=== PATIENT | male | born 1990 | race Caucasian/White ===

== ENCOUNTER 2018-10-11 15:54 | Emergency (ER) | payer MEDICAID ==
[~2018-10-11] VITALS: Ht 182.9 cm; Wt 59.9 kg
[2018-10-11 16:03] VITALS: Ht 182.9 cm; Wt 59.9 kg
[2018-10-11 16:34] VITALS: BP 105/67
== END 2018-10-11 16:34 | disposition home or self-care (01) ==
LOC: ED 15:54
DX: M43.6 Torticollis (principal); F41.9 Anxiety disorder, unspecified
CPT/HCPCS: J1885

== ENCOUNTER 2019-04-06 18:45 | Emergency (ER) | payer OTHER ==
[~2019-04-06] VITALS: Ht 180.3 cm; Wt 62.6 kg
[2019-04-06 18:49] VITALS: Ht 180.3 cm; Wt 62.6 kg
[2019-04-06 20:38] VITALS: BP 107/52
== END 2019-04-06 20:38 | disposition home or self-care (01) ==
LOC: ED 18:45
DX: S50.01XA Contusion of right elbow, initial encounter (principal); X58.XXXA Exposure to other specified factors, initial encounter; Y93.89 Activity, other specified; Y92.89 Other specified places as the place of occurrence of the external cause; Y99.8 Other external cause status

== ENCOUNTER 2019-06-24 19:26 | Emergency (ER) | payer BC ==
[~2019-06-24] VITALS: Ht 182.9 cm; Wt 62.6 kg
[2019-06-24 19:50] VITALS: BP 109/58; Ht 182.9 cm; Wt 62.6 kg
== END 2019-06-24 21:41 | disposition home or self-care (01) ==
LOC: ED 19:26
DX: N34.2 Other urethritis (principal)
CPT/HCPCS: 87491; 87591

== ENCOUNTER 2019-10-21 09:34 | Emergency (ER) | payer BC ==
[~2019-10-21] VITALS: Ht 180.3 cm; Wt 61.2 kg
[2019-10-21 09:39] VITALS: Ht 180.3 cm; Wt 61.2 kg
[2019-10-21 10:56] VITALS: BP 111/70
== END 2019-10-21 10:56 | disposition home or self-care (01) ==
LOC: ED 09:34
DX: S53.401A Unspecified sprain of right elbow, initial encounter (principal); W22.8XXA Striking against or struck by other objects, initial encounter; Y93.89 Activity, other specified; Y92.89 Other specified places as the place of occurrence of the external cause; Y99.8 Other external cause status
CPT/HCPCS: Q0092

== ENCOUNTER 2019-12-25 23:24 | Emergency (ER) | payer BC, SELFPAY ==
[~2019-12-25] VITALS: Ht 180.3 cm; Wt 73.5 kg
[2019-12-25 23:27] VITALS: Ht 180.3 cm; Wt 73.5 kg
[2019-12-26 00:40] VITALS: BP 116/72
== END 2019-12-26 00:40 | disposition home or self-care (01) ==
LOC: ED 23:24
DX: R53.83 Other fatigue (principal); R05 Cough; J02.9 Acute pharyngitis, unspecified; Z90.89 Acquired absence of other organs; Z20.828 Contact with and (suspected) exposure to other viral communicable diseases
CPT/HCPCS: U0003-CS